=== PATIENT | male | born 1985 | race Caucasian/White ===

== ENCOUNTER 2018-04-04 18:24 | Emergency (ER) | payer BC ==
[~2018-04-04] VITALS: Ht 172.7 cm; Wt 70.3 kg
[~2018-04-04 18:24] MED LIST: OXYC1TAB87 PO
--- OUTSIDE RECORDS SUMMARY | 2018-04-04 18:28 | XMS REPORT ---
Author Author VINI BINGHAM Organization [facility] Address [address] [place] [address] Care Team Providers Care Coal Hauler Operator Name Role Phone VINI BINGHAM Unavailable PROBLEMS Type Condition ICD9-CM Code OTE38-CB Code Onset Dates Condition Status SNOMED Code Problem ADHD, predominantly inattentive type F90.0 Active 18998650 ALLERGIES No Information ENCOUNTERS Encounter Location Date Diagnosis [facility] [address] [address] Mar, [facility] [address] [address] Mar, ADHD, predominantly inattentive type F90.0 [facility] [id number] [place] [address] Jan, ADHD, predominantly inattentive type F90.0 [facility] [address] [address] Dec, ADHD, predominantly inattentive type F90.0 [facility] [id number] [place] [address] Nov, Hordeolum externum of left upper eyelid H00.014 and Epidermal cyst of face L72.0 [facility] [id number] [place] [address] Jul, [facility] [address] [address] Jul, ADHD, predominantly inattentive type F90.0 [facility] [id number] [place] [address]70- 5467 Jun, [facility] [address] [place] [address] Jan, ADHD, predominantly inattentive type F90.0 [facility] [address] [facility] [id number], [place] [address] Jan, [facility] [address] [facility] [id number], [place] [address] Dec, ADHD, predominantly inattentive type F90.0 [facility] [address] [facility] [id number] [id number] August, Dental examination Z01.20 IMMUNIZATIONS No Known Immunizations SOCIAL HISTORY Never Assessed REASON FOR VISIT Refill request PLAN OF CARE VITAL SIGNS MEDICATIONS Medication Instructions Dosage Frequency Start Date End Date Duration Status Strattera 40 mg Orally Once a day 1 capsule in the morning 24h Jul, 30 day(s) Active RESULTS No Results PROCEDURES No Known procedures INSTRUCTIONS MEDICATIONS ADMINISTERED No Known Medications MEDICAL (GENERAL) HISTORY Type Description Date Medical History ADHD Surgical History hernia repair 2015 Surgical History wisdom teeth extraction 2017
--- OUTSIDE RECORDS SUMMARY | 2018-04-04 18:29 | XMS REPORT ---
Author Author VINI BINGHAM Organization [facility] Address [address] [place] [address] Care Team Providers Care Fabricator Foam Rubber Name Role Phone VINI BINGHAM Unavailable PROBLEMS Type Condition ICD9-CM Code VPU94-QN Code Onset Dates Condition Status SNOMED Code Problem ADHD, predominantly inattentive type F90.0 Active 54497038 ALLERGIES No Known Allergies ENCOUNTERS Encounter Location Date Diagnosis [facility] [id number] [place] [address] Jul, [facility] [id number] [place] [address] 15060- 3473 Jul, ADHD, predominantly inattentive type F90.0 [facility] [id number] [place] [address] 31223- [address] Jun, [facility] [id number] [place] [address] 77273- 5974 Jan, ADHD, predominantly inattentive type F90.0 [facility] [id number] [place] [address] 71187- 8766 Jan, [facility] [id number] [place] [address] 10695- 4504 Dec, ADHD, predominantly inattentive type F90.0 [facility] [address] [place] [phone] August, Dental examination Z01.20 IMMUNIZATIONS No Known Immunizations SOCIAL HISTORY Never Assessed REASON FOR VISIT SHAHZAD Szymanski MA PLAN OF CARE Activity Details Follow Up 2 Months Reason:ADHD VITAL SIGNS Height 68 in 2017-07-25 Weight 147 lbs 2017-07-25 Temperature 98.1 degrees Fahrenheit 2017-07-25 Heart Rate 72 bpm 2017-07-25 Respiratory Rate 20 2017-07-25 BMI 22.35 kg/m2 2017-07-25 Blood pressure systolic 116 mmHg 2017-07-25 Blood pressure diastolic 66 mmHg 2017-07-25 MEDICATIONS Medication Instructions Dosage Frequency Start Date End Date Duration Status Strattera 40 MG Orally Once a day 1 capsule in the morning 24h Jan, 30 day(s) Not-Taking Strattera 40 mg Orally Once a day 1 capsule in the morning 24h Jul, 30 day(s) Active RESULTS No Results PROCEDURES No Known procedures INSTRUCTIONS MEDICATIONS ADMINISTERED No Known Medications MEDICAL (GENERAL) HISTORY Type Description Date Medical History ADHD Surgical History hernia repair 2016 Surgical History wisdom teeth extraction 2017
--- OUTSIDE RECORDS SUMMARY | 2018-04-04 18:29 | XMS REPORT ---
Author Author EDYTA ELDER Organization [facility] Address [address] [place] [address] Care Team Providers Care Open End Spinning Operator Name Role Phone JERRODJAKOBEDYTA Unavailable PROBLEMS Type Condition ICD9-CM Code GMH68-IP Code Onset Dates Condition Status SNOMED Code Problem ADHD, predominantly inattentive type F90.0 Active 81257051 ALLERGIES No Information ENCOUNTERS Encounter Location Date Diagnosis [facility] [address] [address] Jul, [facility] [address] [address] Jul, ADHD, predominantly inattentive type F90.0 [facility] [id number] [place] [address]- [address] Jun, [facility] [address] [address] Jan, ADHD, predominantly inattentive type F90.0 [facility] [id number] [place] [address]30- 3832 Jan, [facility] [id number] [place] [address] [phone]- 9503 Dec, ADHD, predominantly inattentive type F90.0 [facility] [address] [place] [id number] August, Dental examination Z01.20 IMMUNIZATIONS No Known Immunizations SOCIAL HISTORY Never Assessed REASON FOR VISIT BH intake, ADHD, Inattentive Type PLAN OF CARE Activity Details Follow Up prn Reason: VITAL SIGNS MEDICATIONS Unknown Medications RESULTS No Results PROCEDURES Procedure Date Ordered Result Body Site Psych diagnostic evaluation, established patient Dec 21, 2016 INSTRUCTIONS MEDICATIONS ADMINISTERED No Known Medications MEDICAL (GENERAL) HISTORY Type Description Date Medical History ADHD Surgical History hernia repair 2016 Surgical History wisdom teeth extraction 2017
--- OUTSIDE RECORDS SUMMARY | 2018-04-04 18:29 | XMS REPORT ---
Author Author RODOLFO DE LOS SANTOS Organization [facility] Address [address] [place] [address] Care Team Providers Care Commutator Presser Name Role Phone RODOLFO DE LOS SANTOS Unavailable PROBLEMS Type Condition ICD9-CM Code [id number] Code Onset Dates Condition Status SNOMED Code Problem ADHD, predominantly inattentive type F90.0 Active 90648096 ALLERGIES No Known Allergies SOCIAL HISTORY Never Assessed PLAN OF CARE Activity Details Follow Up as needed Reason: VITAL SIGNS MEDICATIONS Medication Instructions Dosage Frequency Start Date End Date Duration Status [place] 5-325 MG Orally every 6 hrs 1 tablet as needed 6h August, 3 days Active RESULTS No Results PROCEDURES Procedure Date Ordered Result Body Site LTD ORAL EVALUATION - PROBLEM FOCUS August 24, 2016 PANORAMIC FILM SEE ALSO CODE [id number] August 24, 2016 IMMUNIZATIONS No Known Immunizations MEDICAL (GENERAL) HISTORY Type Description Date Medical History ADHD Surgical History hernia repair 2016 Surgical History wisdom teeth extraction 2017
--- OUTSIDE RECORDS SUMMARY | 2018-04-04 18:29 | XMS REPORT ---
Author Author VINI BINGHAM Organization [facility] Address [address] [place] [address] Care Team Providers Care Money Market Clerk Name Role Phone VINI BINGHAM Unavailable PROBLEMS Type Condition ICD9-CM Code [id number] Code Onset Dates Condition Status SNOMED Code Problem ADHD, predominantly inattentive type F90.0 Active 27660096 ALLERGIES No Known Allergies ENCOUNTERS Encounter Location Date Diagnosis [facility] [id number] [place] [address] Dec, ADHD, predominantly inattentive type F90.0 [facility] [id number] [place] [address] Nov, Hordeolum externum of left upper eyelid H00.014 and Epidermal cyst of face L72.0 [facility] [id number] [place] [address] Jul, [facility] [id number] [place] [address] 78[address]- [address] Jul, ADHD, predominantly inattentive type F90.0 [facility] [id number] [place] [address] 91240- 8222 Jun, [facility] [id number] [place] [address] 94579- 9078 Jan, ADHD, predominantly inattentive type F90.0 [facility] [id number] [place] [address] 43508- 7857 Jan, [facility] [id number] [place] [address]- 9066 Dec, ADHD, predominantly inattentive type F90.0 [facility] [address] [place] [id number] August, Dental examination Z01.20 IMMUNIZATIONS No Known Immunizations SOCIAL HISTORY Never Assessed REASON FOR VISIT ADHD: Was working with vocational rehab and getting medication through school program juancho pickard PLAN OF CARE Activity Details Follow Up 2 Months Reason:ADHD VITAL SIGNS Height 68 in 2017-12-27 Weight 147.3 lbs 2017-12-27 Temperature 98.6 degrees Fahrenheit 2017-12-27 Heart Rate 64 bpm 2017-12-27 Respiratory Rate 20 2017-12-27 BMI 22.39 kg/m2 2017-12-27 Blood pressure systolic 128 mmHg 2017-12-27 Blood pressure diastolic 82 mmHg 2017-12-27 MEDICATIONS Medication Instructions Dosage Frequency Start Date End Date Duration Status Strattera 40 mg Orally Once a day 1 capsule in the morning 24h Jul, 30 day(s) Active RESULTS No Results PROCEDURES No Known procedures INSTRUCTIONS MEDICATIONS ADMINISTERED No Known Medications MEDICAL (GENERAL) HISTORY Type Description Date Medical History ADHD Surgical History hernia repair 2015 Surgical History wisdom teeth extraction 2016
--- OUTSIDE RECORDS SUMMARY | 2018-04-04 18:29 | XMS REPORT ---
Author Author LULA ZAVALA [facility] Address [address] [place] [address] Care Team Providers Care Croze Cutter Name Role Phone LULA ZAVALA Unavailable PROBLEMS Type Condition ICD9-CM Code YNB89-GW Code Onset Dates Condition Status SNOMED Code Problem ADHD, predominantly inattentive type F90.0 Active 80349276 ALLERGIES No Known Allergies ENCOUNTERS Encounter Location Date Diagnosis [facility] [address] [address] Dec, ADHD, predominantly inattentive type F90.0 [facility] [address] [address] Nov, Hordeolum externum of left upper eyelid H00.014 and Epidermal cyst of face L72.0 [facility] [address] [address] Jul, [facility] [address] [address] Jul, ADHD, predominantly inattentive type F90.0 [facility] [address] [address]- [address] Jun, [facility] [address] [address]- [address] Jan, ADHD, predominantly inattentive type F90.0 [facility] [address] [address] Jan, [facility] [address] [address]- [address] Dec, ADHD, predominantly inattentive type F90.0 [facility] [address] [facility] [id number] [id number] August, Dental examination Z01.20 IMMUNIZATIONS No Known Immunizations SOCIAL HISTORY Never Assessed REASON FOR VISIT left eye pain x4-5 days JStrasserRN, Lump under right chin for about 1 year PLAN OF CARE Activity Details Follow Up prn Reason: VITAL SIGNS Height 68 in 2017-12-14 Weight 147.8 lbs 2017-12-14 Temperature 98.9 degrees Fahrenheit 2017-12-14 Heart Rate 62 bpm 2017-12-14 Respiratory Rate 22 2017-12-14 BMI 22.47 kg/m2 2017-12-14 Blood pressure systolic 124 mmHg 2017-12-14 Blood pressure diastolic 76 mmHg 2017-12-14 MEDICATIONS Medication Instructions Dosage Frequency Start Date End Date Duration Status Strattera 40 mg Orally Once a day 1 capsule in the morning 24h Jul, 30 day(s) Active RESULTS No Results PROCEDURES No Known procedures INSTRUCTIONS MEDICATIONS ADMINISTERED No Known Medications MEDICAL (GENERAL) HISTORY Type Description Date Medical History ADHD Surgical History hernia repair 2016 Surgical History wisdom teeth extraction 2016
--- OUTSIDE RECORDS SUMMARY | 2018-04-04 18:29 | XMS REPORT ---
Author Author VINI BINGHAM Organization [facility] Address [address] [place] [address] Care Team Providers Care Acute Care Physician Name Role Phone OTILIA VINI Unavailable PROBLEMS Type Condition ICD9-CM Code TIR07-ZB Code Onset Dates Condition Status SNOMED Code Problem ADHD, predominantly inattentive type F90.0 Active 84956209 ALLERGIES No Information ENCOUNTERS Encounter Location Date Diagnosis [facility] [id number] [place] [address]58- [address] Jul, [facility] [id number] [place] [address]- [address] Jul, ADHD, predominantly inattentive type F90.0 [facility] [id number] [place] [address] 21291- 1744 Jun, [facility] [id number] [place] [address] 93112- 9395 Jan, ADHD, predominantly inattentive type F90.0 [facility] [id number] [place] [address] 14981- 5576 Jan, [facility] [id number] [place] [address] 75179- 5491 Dec, ADHD, predominantly inattentive type F90.0 [facility] [address] [place] [id number] August, Dental examination Z01.20 IMMUNIZATIONS No Known Immunizations SOCIAL HISTORY Never Assessed REASON FOR VISIT refill request PLAN OF CARE VITAL SIGNS MEDICATIONS Unknown Medications RESULTS No Results PROCEDURES No Known procedures INSTRUCTIONS MEDICATIONS ADMINISTERED No Known Medications MEDICAL (GENERAL) HISTORY Type Description Date Medical History ADHD Surgical History hernia repair 2016 Surgical History wisdom teeth extraction 2016
--- OUTSIDE RECORDS SUMMARY | 2018-04-04 18:29 | XMS REPORT ---
Author Author VINI BINGHAM Organization [facility] Address [address] [place] [address] Care Team Providers Care Client Experience Administrator Name Role Phone OTILIA VINI Unavailable PROBLEMS Type Condition ICD9-CM Code CQZ72-MW Code Onset Dates Condition Status SNOMED Code Problem ADHD, predominantly inattentive type F90.0 Active 86105311 ALLERGIES No Known Allergies ENCOUNTERS Encounter Location Date Diagnosis [facility] [id number] [place] [address] 20052- [address] Jul, [facility] [id number] [place] [address] 73820- 0268 Jul, ADHD, predominantly inattentive type F90.0 [facility] [id number] [place] [address] 43582- 1800 Jun, [facility] [id number] [place] [address] 88984- 3140 Jan, ADHD, predominantly inattentive type F90.0 [facility] [address] [address] Jan, [facility] [id number] [place] [address] 71013- 8916 Dec, ADHD, predominantly inattentive type F90.0 [facility] [address] [place] [phone] August, Dental examination Z01.20 IMMUNIZATIONS No Known Immunizations SOCIAL HISTORY Never Assessed REASON FOR VISIT PMH obtained. Anibal SALES PLAN OF CARE VITAL SIGNS MEDICATIONS Unknown Medications RESULTS No Results PROCEDURES No Known procedures INSTRUCTIONS MEDICATIONS ADMINISTERED No Known Medications MEDICAL (GENERAL) HISTORY Type Description Date Medical History ADHD Surgical History hernia repair 2016 Surgical History wisdom teeth extraction 2016
--- OUTSIDE RECORDS SUMMARY | 2018-04-04 18:29 | XMS REPORT ---
Author Author VINI BINGHAM Organization [facility] Address [address] [place] [address] Care Team Providers Care Broadcast Operations Technician Name Role Phone VINI BINGHAM Unavailable PROBLEMS Type Condition ICD9-CM Code DKF84-OQ Code Onset Dates Condition Status SNOMED Code Problem ADHD, predominantly inattentive type F90.0 Active 35124585 ALLERGIES No Information ENCOUNTERS Encounter Location Date Diagnosis [facility] [id number] [place] [address] 08958- 5706 Jan, ADHD, predominantly inattentive type F90.0 [facility] [id number] [place] [address] 25526- 7760 Dec, ADHD, predominantly inattentive type F90.0 [facility] [id number] [place] [address] 87226 -[address] Nov, Hordeolum externum of left upper eyelid H00.014 and Epidermal cyst of face L72.0 [facility] [id number] [place] [address] 04347- 1176 Jul, [facility] [id number] [place] [address] 32486- 9769 Jul, ADHD, predominantly inattentive type F90.0 [facility] [id number] [place] [address] 41681- 6818 Jun, [facility] [id number] [place] [address] 56737- 1888 Jan, ADHD, predominantly inattentive type F90.0 [facility] [id number] [place] [address] 80520- 4428 Jan, [facility] [address] [place] [address]- [address] Dec, ADHD, predominantly inattentive type F90.0 [facility] [address] [facility] [id number] [place] [phone] August, Dental examination Z01.20 IMMUNIZATIONS No Known Immunizations SOCIAL HISTORY Never Assessed REASON FOR VISIT Medication refill request PLAN OF CARE VITAL SIGNS [...]
--- OUTSIDE RECORDS SUMMARY | 2018-04-04 18:29 | XMS REPORT ---
Author Author VINI BINGHAM Organization [facility] Address [address] [place] [address] Care Team Providers Care Director Of Business Operations Name Role Phone OTILIA VINI Unavailable PROBLEMS Type Condition ICD9-CM Code FYY04-DN Code Onset Dates Condition Status SNOMED Code Problem ADHD, predominantly inattentive type F90.0 Active 59694264 ALLERGIES No Information ENCOUNTERS Encounter Location Date Diagnosis [facility] [id number] [place] [address] 69744- 9907 Jul, [facility] [id number] [place] [address] 05624- 1789 Jul, ADHD, predominantly inattentive type F90.0 [facility] [id number] [place] [address] 36597- 3357 Jun, [facility] [id number] [place] [address] 04221- 2860 Jan, ADHD, predominantly inattentive type F90.0 [facility] [id number] [place] [address] 28235- 9947 Jan, [facility] [id number] [place] [address] 69383- 4689 Dec, ADHD, predominantly inattentive type F90.0 [facility] [id number] [place] [id number] August, Dental examination Z01.20 IMMUNIZATIONS No Known Immunizations SOCIAL HISTORY Never Assessed REASON FOR VISIT med PLAN OF CARE VITAL SIGNS MEDICATIONS Unknown Medications RESULTS No Results PROCEDURES No Known procedures INSTRUCTIONS MEDICATIONS ADMINISTERED No Known Medications MEDICAL (GENERAL) HISTORY Type Description Date Medical History ADHD Surgical History hernia repair 2016 Surgical History wisdom teeth extraction 2016
[2018-04-04] MEDS ORDERED: ATOMOXETINE HCL 40 MG (18:37)
--- NOTE | 2018-04-04 18:52 | ED Back Pain ---
General Chief Complaint: Chest Wall/Rib Pain Stated Complaint: PAIN IN RT SIDE ABD Nursing Triage Note: pt presents to er with complaint of right sided rib pain for two weeks. denies injury. Nursing Sepsis Screen: No Definite Risk Source of Information: Patient Exam Limitations: No Limitations History of Present Illness Date Seen by Provider: Apr 04, 2018 Time Seen by Provider: 18:50 Initial Comments To ER per private vehicle with right lateral lower posterior chest wall pain for 2 weeks. No cough or shortness of breath. Pain is worsened by deep breathing. No fevers no chills. No dysuria. Location: Other Timing/Duration: Other (2 weeks) Severity: Moderate Pain/Injury Location: Back Allergies and Home Medications Allergies Coded Allergies: No Known Drug Allergies (Unverified , 02/19/16) Home Medications Oxycodone HCl/Acetaminophen 1 Each Tablet, 1 EACH PO Q4H PRN for PAIN Prescribed by: BUCKY LEIJA on 02/20/16 1317 Patient Home Medication List Home Medication List Reviewed: Yes Review of Systems Constitutional: see HPI; No chills, No fever EENTM: see HPI Respiratory: no symptoms reported; No cough Cardiovascular: no symptoms reported Genitourinary: no symptoms reported; No dysuria Musculoskeletal: no symptoms reported Skin: no symptoms reported Psychiatric/Neurological: No Symptoms Reported Past Ifxajdh-Hmvzdc-Pnjhsj Hx Patient Social History Alcohol Use: Denies Use Recreational Drug Use: No Smoking Status: Current Everyday Smoker Type Used: Cigarettes Recent Foreign Travel: No Contact w/Someone Who Travel: No Recent Infectious Disease Expo: No Recent Hopitalizations: No Immunizations Up To Date Tetanus Booster (TDap): Less than 5yrs PED Vaccines UTD: Yes Date of Influenza Vaccine: Dec 29, 2015 Seasonal Allergies Seasonal Allergies: Yes Past Medical History Surgeries: Yes (HERNIA-GROIN, repaired as an ) Respiratory: No Cardiac: No Neurological: No Reproductive Disorders: No Sexually Transmitted Disease: No HIV/AIDS: No Gastrointestinal: Yes Gastroesophageal Reflux Musculoskeletal: Yes Chronic Back Pain Endocrine: No Cancer: No Psychosocial: Yes ADD/ADHD Integumentary: No Blood Disorders: No Adverse Reaction/Blood Tranf: No (N/A) Physical Exam Vital Signs Vital Signs - First Documented 04/04/18 18:34 Pulse 84 Resp 20 B/P (MAP) 121/58 (79) Pulse Ox 97 O2 Delivery Room Air Capillary Refill : Less Than 3 Seconds Height, Weight, BMI Height: 5'8.00" Weight: 155lbs. 0.0oz. 70.515725nm; 22.1 BMI Method:Stated General Appearance: No Apparent Distress, WD/WN HEENT: PERRL/EOMI, TMs Normal Neck: Full Range of Motion, Normal Inspection Respiratory: No Accessory Muscle Use, No Respiratory Distress Gastrointestinal: Normal Bowel Sounds, Non Tender, Soft Neurologic/Psychiatric: Alert, Oriented x3 Skin: Normal Color, Warm/Dry Progress/Results/Core Measures Results/Orders Lab Results Laboratory Tests Test 04/04/18 19:34 04/04/18 19:40 Range/Units Urine Color YELLOW Urine Clarity CLEAR Urine pH 7 5-9 Urine Specific [place] 1.010 L 1.016-1.022 Urine Protein NEGATIVE NEGATIVE Urine Glucose (UA) NEGATIVE NEGATIVE Urine Ketones NEGATIVE NEGATIVE Urine Nitrite NEGATIVE NEGATIVE Urine Bilirubin NEGATIVE NEGATIVE Urine Urobilinogen NORMAL NORMAL MG/DL Urine Leukocyte Esterase 1+ H NEGATIVE Urine RBC (Auto) NEGATIVE NEGATIVE Urine RBC NONE /HPF Urine WBC 2-5 /HPF Urine Crystals NONE /LPF Urine Bacteria NEGATIVE /HPF Urine Casts NONE /LPF Urine Mucus NEGATIVE /LPF Urine Culture Indicated NO White Blood Count 7.2 4.3-11.0 10^3/uL Red Blood Count 5.15 4.35-5.85 10^6/uL Hemoglobin 15.6 13.3-17.7 G/DL Hematocrit 44 40-54 % Mean Corpuscular Volume 86 80-99 FL Mean Corpuscular Hemoglobin 30 25-34 PG Mean Corpuscular Hemoglobin Concent 35 32-36 G/DL Red Cell Distribution Width 12.9 10.0-14.5 % Platelet Count 254 130-400 10^3/uL Mean Platelet Volume 10.2 7.4-10.4 FL Neutrophils (%) (Auto) 65 42-75 % Lymphocytes (%) (Auto) 28 12-44 % Monocytes (%) (Auto) 6 0-12 % Eosinophils (%) (Auto) 1 0-10 % Basophils (%) (Auto) 0 0-10 % Neutrophils # (Auto) 4.7 1.8-7.8 X 10^3 Lymphocytes # (Auto) 2.0 1.0-4.0 X 10^3 Monocytes # (Auto) 0.5 0.0-1.0 X 10^3 Eosinophils # (Auto) 0.1 0.0-0.3 10^3/uL Basophils # (Auto) 0.0 0.0-0.1 10^3/uL Sodium Level 141 135-145 MMOL/L Potassium Level 3.5 L 3.6-5.0 MMOL/L Chloride Level 103 98-107 MMOL/L Carbon Dioxide Level 25 21-32 MMOL/L Anion Gap 13 5-14 MMOL/L Blood Urea Nitrogen 10 7-18 MG/DL Creatinine 0.99 0.60-1.30 MG/DL Estimat Glomerular Filtration Rate > 60 BUN/Creatinine Ratio 10 Glucose Level 79 70-105 MG/DL Calcium Level 10.2 H 8.5-10.1 MG/DL Corrected Calcium 8.5-10.1 MG/DL Total Bilirubin 1.0 0.1-1.0 MG/DL Aspartate Amino Transf (AST/SGOT) 25 5-34 U/L Alanine Aminotransferase (ALT/SGPT) 21 0-55 U/L Alkaline Phosphatase 97 40-136 U/L Total Protein 8.3 H 6.4-8.2 GM/DL Albumin 5.2 H 3.2-4.5 GM/DL My Orders Orders - RENETTA COVINGTON APRN Chest Pa/Lat (2 View) (04/04/18 18:50) Cbc With Automated Diff (04/04/18 19:02) Comprehensive Metabolic Panel (04/04/18 19:02) Iv Heplock-Insert (Order) (04/04/18 19:02) Ketorolac Injection (Toradol Injection) (04/04/18 19:15) Ct Abd/Pelvis Wo(Kidney Stone) (04/04/18 19:02) Medications Given in ED Current Medications Medications Dose Ordered Sig/Ab Route Start Time Stop Time Status Last Admin Dose Admin Ketorolac Tromethamine 15 mg ONCE ONCE IVP 04/04/18 19:15 04/04/18 19:16 DC 04/04/18 19:41 15 MG Vital Signs/I&O 18 18:34 Pulse 84 Resp 20 B/P (MAP) 121/58 (79) Pulse Ox 97 O2 Delivery Room Air Blood Pressure Mean: 79 Diagnostic Imaging Diagonstic Imaging: Xray Plain Films/CT/US/NM/MRI: chest Comments NAME: MARISA NEWMAN [facility] REC#: [id number] PT STATUS: REG ER : 1985 PHYSICIAN: RENETTA COVINGTON APRN ADMIT DATE: 04/04/18/ER Draft Date of Exam:04/04/18 CT ABD/PELVIS WO(KIDNEY STONE) PROCEDURE: CT urinary tract, rule out kidney stone. TECHNIQUE: Multiple contiguous axial images were obtained through the abdomen and pelvis without the use of intravenous contrast. INDICATION: Right posterior abdominal pain. No prior studies are available for comparison. The lung bases are clear. No discrete liver mass is seen. The gallbladder is unremarkable. No biliary ductal dilatation is identified. Pancreas and spleen are unremarkable. No adrenal mass is seen. No renal calculi are identified. No hydronephrosis is detected. The ureters are nondilated. No ureteral calculi are seen. Aorta is nonaneurysmal. Small and large bowel loops are normal caliber without evidence of obstruction. The appendix appears unremarkable. No inflammatory process is seen. There does appear to be some mild bladder wall thickening versus incomplete distention. IMPRESSION: 1. No evidence of urinary tract calculi or obstruction. 2. No evidence of acute appendicitis. 3. Generalized bladder wall thickening. This could be secondary to incomplete distention versus cystitis. Dictated on workstation # [id number] Dict: 04/04/181956 Trans: 04/04/182014 [facility] [id number] Interpreted by: SHAKILA UMANA MD Electronically signed by: Departure Impression Primary Impression: Pleuritic chest pain Disposition: 01 HOME, SELF-CARE Condition: Stable Departure-Patient Inst. Decision time for Depature: 20:18 Referrals: NO,LOCAL PHYSICIAN (PCP/Family) Primary Care Physician Patient Instructions: Pleuritic Chest Pain (DC) Add. Discharge Instructions: 1. Steroids as directed 2. Follow-up with your doctor later this week 3. All discharge instructions reviewed with patient and/or family. Voiced understanding. Scripts Methylprednisolone (Medrol) 4 Mg Tab.ds.pk 4 MG PO UD, #1 PKG Prov: RENETTA COVINGTON APRN 04/04/18 Images Torso/Trunk 1 - Tenderness RENETTA COVINGTON APRN Apr 04, 2018 18:52
--- NOTE | 2018-04-04 19:09 | Diagnostic Imaging Report ---
INDICATION: Right-sided rib pain and shortness of air. Time of exam: 7:23 PM No definite displaced rib fracture Is seen. The lungs are clear. No infiltrate, effusion or pneumothorax is identified. The heart size is normal. IMPRESSION: No acute abnormality is detected. Dictated by: Dictated on workstation # [id number]
[2018-04-04] MEDS ORDERED: KETOROLAC 30 MG/ML VIAL IVP ONE (19:15)
[2018-04-04 19:40] LABS: BILIRUBIN,URINE NEGATIVE (NEGATIVE); CLARITY,URINE CLEAR; COLOR,URINE YELLOW; GLUCOSE, URINE (UA) NEGATIVE (NEGATIVE); KETONES,URINE NEGATIVE (NEGATIVE); LEUKOCYTE ESTERASE ,URINE 1+ (NEGATIVE); NITRITE,URINE NEGATIVE (NEGATIVE); PH,URINE 7 (5-9); PROTEIN,URINE NEGATIVE (NEGATIVE); UROBILINOGEN,URINE NORMAL (NORMAL)
[2018-04-04 19:48] LABS: BACTERIA,URINE NEGATIVE /HPF
[2018-04-04 19:48] LABS: BASOPHILS % (AUTO) 0 % (0-10); EOSINOPHILS # (AUTO) 0.1 10^3/uL (0.0-0.3); EOSINOPHILS % (AUTO) 1 % (0-10); HEMATOCRIT 44 % (40-54); HEMOGLOBIN 15.6 G/DL (13.3-17.7); LYMPHOCYTES % (AUTO) 28 % (12-44); MEAN CORPUSCULAR HEMOGLOBIN 30 PG (25-34); MEAN CORPUSCULAR HGB CONC 35 G/DL (32-36); MEAN CORPUSCULAR VOLUME 86 FL (80-99); MEAN PLATELET VOLUME 10.2 FL (7.4-10.4); MONOCYTES # (AUTO) 0.5 X 10^3 (0.0-1.0); MONOCYTES % (AUTO) 6 % (0-12); NEUTROPHILS # (AUTO) 4.7 X 10^3 (1.8-7.8); NEUTROPHILS % (AUTO) 65 % (42-75); PLATELET COUNT 254 10^3/uL (130-400); RED BLOOD COUNT 5.15 10^6/uL (4.35-5.85); RED CELL DISTRIBUTION WIDTH 12.9 % (10.0-14.5); WHITE BLOOD COUNT 7.2 10^3/uL (4.3-11.0)
[2018-04-04 20:10] LABS: ALANINE AMINOTRANSFERASE 21 U/L (0-55); ALBUMIN 5.2 GM/DL (3.2-4.5); ALKALINE PHOSPHATASE 97 U/L (40-136); BUN/CREATININE RATIO 10; CALCIUM 10.2 MG/DL (8.5-10.1); CARBON DIOXIDE 25 MMOL/L (21-32); CHLORIDE 103 MMOL/L (98-107); CREATININE SERUM 0.99 MG/DL (0.60-1.30); GFR ESTIMATED > 60; GLUCOSE 79 MG/DL (70-105); POTASSIUM 3.5 MMOL/L (3.6-5.0); SODIUM 141 MMOL/L (135-145); TOTAL PROTEIN 8.3 GM/DL (6.4-8.2)
--- NOTE | 2018-04-04 20:16 | Diagnostic Imaging Report ---
PROCEDURE: CT urinary tract, rule out kidney stone. TECHNIQUE: Multiple contiguous axial images were obtained through the abdomen and pelvis without the use of intravenous contrast. INDICATION: Right posterior abdominal pain. No prior studies are available for comparison. The lung bases are clear. No discrete liver mass is seen. The gallbladder is unremarkable. No biliary ductal dilatation is identified. Pancreas and spleen are unremarkable. No adrenal mass is seen. No renal calculi are identified. No hydronephrosis is detected. The ureters are nondilated. No ureteral calculi are seen. Aorta is nonaneurysmal. Small and large bowel loops are normal caliber without evidence of obstruction. The appendix appears unremarkable. No inflammatory process is seen. There does appear to be some mild bladder wall thickening versus incomplete distention. IMPRESSION: 1. No evidence of urinary tract calculi or obstruction. 2. No evidence of acute appendicitis. 3. Generalized bladder wall thickening. This could be secondary to incomplete distention versus cystitis. Dictated by: Dictated on workstation # [id number]
[2018-04-04] MEDS ORDERED: METH4TAB PO (20:19)
[2018-04-04 20:25] VITALS: BP 120/60
== END 2018-04-04 20:29 | disposition home or self-care (01) ==
LOC: EDUNIT# 18:24 → ER 18:25
DX: R07.81 Pleurodynia (principal); K21.9 Gastro-esophageal reflux disease without esophagitis; F90.9 Attention-deficit hyperactivity disorder, unspecified type; F98.8 Other specified behavioral and emotional disorders with onset usually occurring in childhood and adolescence; F17.210 Nicotine dependence, cigarettes, uncomplicated; Z98.890 Other specified postprocedural states
CPT/HCPCS: 36415; 71046; 74176; 80053; 81000; 85025